=== PATIENT | female | born 1990 | race Caucasian/White ===

== ENCOUNTER 2025-05-27 16:12 | Emergency (ER) | payer OTHER ==
[2025-05-27 16:19] VITALS: BP 124/86; PULSE 104; RESP 18; TEMP 98; BMI 33.6
[2025-05-27] MEDS: LACTATED RINGERS SOLUTION 1000 ML INFUS.BAG IV ONE (17:45)
[2025-05-27] MEDS: METOCLOPRAMIDE HCL INJECTION 10 MG/2 ML VIAL IVPB ONE (17:46)
[2025-05-27] MEDS ORDERED: METOCLOPRAMIDE HCL INJECTION 10 MG/2 ML VIAL ONE (17:46)
[2025-05-27] MEDS ORDERED: ACETAMINOPHEN INJECTION 100 ML ONE (17:46)
[2025-05-27] MEDS: ACETAMINOPHEN 1000 MG/100 ML BAG IVPB ONE (17:46)
[2025-05-27 17:47] LABS: ABSOLUTE IMMATURE GRANULOCYTES 0.09 x10^3/uL (0.0-0.031); BASOPHILS # 0.06 x10^3/uL (0.01-0.08); EOSINOPHIL % 0.3 % (0.7-5.8); EOSINOPHILS # 0.04 x10^3/uL (0.04-0.36); MCHC 32.1 g/dl (32.2-35.5); MEAN CELL VOLUME 83.1 fl (79.4-94.8); MEAN PLT VOLUME 9.6 fl (9.4-12.3); MONOCYTE # 0.70 x10^3/uL (0.24-0.86); MONOCYTE % 4.8 % (4.7-12.5); RDW 16.2 % (12.1-16.8)
[2025-05-27 18:04] LABS: CO2 25.0 mmol/L (21-32); GLUCOSE,RANDOM 88.0 mg/dL (74-106)
[2025-05-27 18:06] LABS: SGPT/ALT 21.0 U/L (13-61)
[2025-05-27 18:07] LABS: CREATININE 0.7 mg/dL (0.55-1.3); SGOT/AST 15.0 U/L (15-37)
[2025-05-27 18:08] LABS: TOT PROT 7.7 g/dl (6.4-8.2)
[2025-05-27 18:09] LABS: ALK PHOS 92.0 U/L (45-117)
[2025-05-27 19:23] LABS: HCV DIAGNOSTIC IN-HOUSE W/RFLX NON-REACTIVE (NONREACTIVE)
[2025-05-27 19:45] LABS: HIV INTERPRETATION NEGATIVE (NEGATIVE)
[2025-05-27] MEDS ORDERED: KETOROLAC TROMETHAMINE 15 MG/ML VIAL ONE (20:42)
[2025-05-27] MEDS ORDERED: AMOX TR/POT CLAV 875MG/125MG TABLETS (FP) ONE (20:42)
[2025-05-27] MEDS: KETOROLAC TROMETHAMINE 15 MG/ML VIAL IVPUSH ONE (20:52)
[2025-05-27] MEDS: AMOX TR/POT CLAV 875MG/125MG TABLETS (FP) PO ONE (20:52)
== END 2025-05-27 20:53 | disposition home or self-care (01) ==
LOC: JERFT 16:12
PROC: 3E033NZ Introduction of Analgesics, Hypnotics, Sedatives into Peripheral Vein, Percutaneous Approach (ICD-10-PCS; principal; 2025-05-27)
PROC: 3E0333Z Introduction of Anti-inflammatory into Peripheral Vein, Percutaneous Approach (ICD-10-PCS; 2025-05-27)
PROC: 3E033GC Introduction of Other Therapeutic Substance into Peripheral Vein, Percutaneous Approach (ICD-10-PCS; 2025-05-27)
DX: D75.839 Thrombocytosis, unspecified (principal); R51.9 Headache, unspecified; R42 Dizziness and giddiness
CPT/HCPCS: 36415; 70450-TC; 80053; 83735; 84703; 85025; 86803; 87389; 93005; 93010; 99285-25